=== PATIENT | male | born 1940 | race Caucasian/White ===

== ENCOUNTER 2017-05-20 06:45 | Day surgery (SDC) | payer OTHER ==
[~2017-05-20] VITALS: Ht 172.7 cm; Wt 74.7 kg
[2017-05-20] MEDS ORDERED: SODIUM CHLORIDE 0.9% 1000ML 1,000 ML IV ONE (06:51)
[2017-05-20 07:42] VITALS: BP 125/70
[2017-05-20] MEDS ORDERED: TAMS0.4C32 PO (07:57)
[2017-05-20] MEDS ORDERED: AEC81 PO (07:57)
[2017-05-20] MEDS ORDERED: SIMV10TA6 PO (07:57)
[2017-05-20] MEDS ORDERED: PROPOFOL 10 MG/ML 20ML VIAL IV ONE (09:01)
[2017-05-20 09:22] VITALS: BP 93/47
== END 2017-05-20 10:00 ==
LOC: ENDO 06:45 → DAH 06:45 → ENDO 10:00
PROVIDERS: ATTEND Internal Medicine Gastroenterology
DX: Z09 Encounter for follow-up examination after completed treatment for conditions other than malignant neoplasm (principal); Z86.010 Personal history of colon polyps; D12.1 Benign neoplasm of appendix; I10 Essential (primary) hypertension; N40.0 Benign prostatic hyperplasia without lower urinary tract symptoms; E78.5 Hyperlipidemia, unspecified; Z79.899 Other long term (current) drug therapy; Z98.890 Other specified postprocedural states
CPT/HCPCS: 45380; 88305; 93005; A4606; J2704; J7030

== ENCOUNTER → 2018-05-28 | Outpatient (CLI) | payer OTHER ==
[~2018-05-28] MED LIST: AEC81 PO; SIMV10TA6 PO; TAMS0.4C32 PO
== END | disposition home or self-care (01) ==
LOC: SHCH 07:54
PROVIDERS: ATTEND Internal Medicine Cardiovascular Disease
DX: I25.10 Atherosclerotic heart disease of native coronary artery without angina pectoris (principal)
CPT/HCPCS: 93978

== ENCOUNTER → 2019-09-08 | Outpatient (CLI) | payer OTHER ==
[~2019-09-08] MED LIST changes: -SIMV10TA6 PO; +SIMV10TA97 PO
== END | disposition home or self-care (01) ==
LOC: SHCH 11:59
PROVIDERS: ATTEND Internal Medicine Cardiovascular Disease
DX: R09.89 Other specified symptoms and signs involving the circulatory and respiratory systems (principal)
CPT/HCPCS: 93306; 93356; 93880

== ENCOUNTER 2021-09-12 05:43 | Observation (INO) | payer OTHER ==
[2021-09-06 11:08] LABS: BASOPHILS % (AUTO) 0.8 % (0.0-5.0); CREATININE 0.8 mg/dL (0.5-1.5); EOSINOPHILS % (AUTO) 1.4 % (0.0-8.0); HEMATOCRIT 41.6 % (42-54); LYMPHOCYTES % (AUTO) 25.4 % (21.0-51.0); MEAN CORPUSCULAR HEMOGLOBIN 31.4 pg (27.0-33.0); MEAN CORPUSCULAR HGB CONC 33.4 g/dL (32.0-36.0); MEAN CORPUSCULAR VOLUME 94.1 fL (79-99); MONOCYTES % (AUTO) 5.8 % (3.0-13.0); NEUTROPHILS % (AUTO) 66.3 % (40.0-77.0); PLATELET COUNT (AUTO) 226 K/uL (130-400); POTASSIUM 4.7 mmol/L (3.5-5.1); RED BLOOD CELL COUNT(AUTO) 4.42 MIL/uL (4.50-6.20); WHITE BLOOD COUNT (AUTO) 7.1 K/uL (4.8-10.8)
[2021-09-06 12:10] LABS: INR 0.98 (0.85-1.15); PROTHROMBIN TIME 10.7 SEC (9.6-11.6)
[2021-09-06 12:11] LABS: PARTIAL THROMBOPLASTIN TIME 26.6 SEC (26.3-35.5)
[2021-09-11 15:45] VITALS: BP 153/84
[2021-09-12] VITALS (25 sets, daily range): BP systolic 112–149; BP diastolic 49–79
[~2021-09-12] VITALS: Ht 172.7 cm; Wt 72.7 kg
[~2021-09-12 05:43] MED LIST changes: -AEC81 PO; +LOSA50TA64 PO
[2021-09-12] MEDS ORDERED: TRANEXAMIC ACID 1000MG/10ML ONE (06:50)
[2021-09-12] MEDS ORDERED: LACTATED RINGERS 1000ML 1,000 ML IV ONE (06:52)
[2021-09-12] MEDS ORDERED: CEFAZOLIN SODIUM 1 GM VIAL ONE (06:52)
[2021-09-12] MEDS ORDERED: PROPOFOL 1000 MG/100 ML 100 ML IV ONE (07:11)
[2021-09-12] MEDS ORDERED: FAMOTIDINE 20MG VIAL IV ONE (07:11)
[2021-09-12] MEDS ORDERED: PHENYLEPHRINE HCL 10 MG/ML 1ML VIAL IV ONE (07:13)
[2021-09-12] MEDS ORDERED: ROPIVACAINE 0.5% 5MG/ML 30ML IJ ONE (07:17)
[2021-09-12] MEDS ORDERED: LIDOCAINE PF 100MG/5ML (2%) SYRINGE 5ML ONE (07:20)
[2021-09-12] MEDS ORDERED: FENTANYL CITRATE PF 50 MCG/1 ML 2ML VIAL ONE (07:21)
[2021-09-12] MEDS ORDERED: ROCURONIUM 10MG/1ML SYR 10 MG/ML ML ONE (07:21)
[2021-09-12] MEDS ORDERED: PROPOFOL 10 MG/ML 20ML VIAL IV ONE ×2 (07:21→09:38)
[2021-09-12] MEDS ORDERED: GLYCOPYRROLATE 1 MG/5 ML SYRINGE ONE (07:21)
[2021-09-12] MEDS ORDERED: ONDANSETRON 4MG INJ ONE (08:13)
[2021-09-12] MEDS ORDERED: ROPIVICAINE 250MG+KETOROLAC 15MG+EPINEPHRINE 0.3+CLONIDINE 80 IV PRN ×5 (09:00)
[2021-09-12] MEDS ORDERED: NEOSTIGMINE 5MG/5ML SYR IV ONE (09:34)
[2021-09-12] MEDS ORDERED: MEPERIDINE-PF 25 MG/ML SYG ONE ×2 (09:37→10:45)
[2021-09-12] MEDS ORDERED: KCL 20 MEQ ERTAB PO PRN (10:30)
[2021-09-12] MEDS ORDERED: LIDOCAINE HCL-MPF 1% 2ML VIAL IV PRN (10:30)
[2021-09-12] MEDS: 0.9%NACL 1000ML 1,000 ML IV SCH ×2 (10:30→20:37)
[2021-09-12] MEDS ORDERED: ONDANSETRON 4MG INJ IVP PRN (10:30)
[2021-09-12] MEDS ORDERED: POTASSIUM CHLORIDE 10% ELIXIR 20 MEQ/15 ML UDCUP PO PRN (10:30)
[2021-09-12] MEDS ORDERED: HYDROCODONE/ACETAMINOPHEN 5/325 MG TAB PO PRN (10:30)
[2021-09-12] MEDS ORDERED: HYDROCODONE/ACETAMINOPHEN 10/325 MG TAB PO PRN (10:30)
[2021-09-12] MEDS ORDERED: POTASSIUM CHLORIDE 20MEQ/100ML 100 ML IV PRN (10:30)
[2021-09-12] MEDS ORDERED: MORPHINE 4 MG SYG IVP PRN (10:30)
[2021-09-12] MEDS: ACETAMINOPHEN 500 MG TABLET PO SCH ×2 (10:30→18:29)
[2021-09-12] MEDS ORDERED: KETOROLAC 15MG/ML VIAL (15MG/ML) IV PRN (10:30)
[2021-09-12] MEDS: TRAMADOL HCL 50 MG TABLET PO SCH ×2 (11:58→18:29)
[2021-09-12] MEDS: TAMSULOSIN HCL 0.4 MG CAP.ER.24H PO SCH (13:20)
[2021-09-12] MEDS: CEFAZOLIN SODIUM 1 GM VIAL IVP SCH (16:30)
[2021-09-12] MEDS: ENOXAPARIN SODIUM 30 MG/0.3 ML SQ SCH (16:33)
[2021-09-12] MEDS: FAMOTIDINE 20MG TAB PO SCH (20:37)
[2021-09-12] MEDS ORDERED: LOSARTAN 50 MG TABLET PO SCH (21:00)
[2021-09-13] VITALS: BP 147/71
[2021-09-13] MEDS: CEFAZOLIN SODIUM 1 GM VIAL IVP SCH (00:05)
[2021-09-13] MEDS: TRAMADOL HCL 50 MG TABLET PO SCH ×3 (00:05→13:21)
[2021-09-13] MEDS: ACETAMINOPHEN 500 MG TABLET PO SCH ×2 (02:05→09:48)
[2021-09-13 03:35] LABS: HEMATOCRIT 34.8 % (42-54); MEAN CORPUSCULAR HEMOGLOBIN 31.3 pg (27.0-33.0); MEAN CORPUSCULAR HGB CONC 34.2 g/dL (32.0-36.0); MEAN CORPUSCULAR VOLUME 91.6 fL (79-99); RED BLOOD CELL COUNT(AUTO) 3.8 MIL/uL (4.50-6.20); RED CELL DISTRIBUTION WIDTH 12.4 % (11.0-15.5); WHITE BLOOD COUNT (AUTO) 9.5 K/uL (4.8-10.8)
[2021-09-13 03:42] LABS: CREATININE 0.8 mg/dL (0.5-1.5); POTASSIUM 3.8 mmol/L (3.5-5.1)
[2021-09-13 04:00] VITALS: BP 148/70
[2021-09-13] MEDS: 0.9%NACL 1000ML 1,000 ML IV SCH ×2 (05:55→09:50)
[2021-09-13] MEDS ORDERED: LACTATED RINGERS 1000ML 1,000 ML IV SCH (06:00)
[2021-09-13] MEDS ORDERED: CEFAZOLIN SODIUM 1 GM VIAL IVP SCH (06:00)
[2021-09-13] MEDS ORDERED: TRANEXAMIC ACID 1000MG/10ML IV SCH (06:00)
[2021-09-13 08:00] VITALS: BP 160/80
[2021-09-13] MEDS ORDERED: POLYETHYLENE GLYCOL 3350 17 GM POWD.PACK PO SCH (09:00)
[2021-09-13] MEDS: FAMOTIDINE 20MG TAB PO SCH (09:47)
[2021-09-13] MEDS: ENOXAPARIN SODIUM 30 MG/0.3 ML SQ SCH (09:50)
[2021-09-13 12:00] VITALS: BP 152/74
[2021-09-13] MEDS: TAMSULOSIN HCL 0.4 MG CAP.ER.24H PO SCH (13:21)
[2021-09-15] MEDS ORDERED: BISACODYL 10 MG SUPP.RECT RC PRN (10:30)
== END 2021-09-13 15:46 | disposition home or self-care (01) ==
LOC: DAH 05:43 → DAHIP 05:44 → 4BH 11:34
PROVIDERS: ADMIT Orthopaedic Surgery; ATTEND Orthopaedic Surgery
DX: M17.12 Unilateral primary osteoarthritis, left knee (principal); Z20.822 Contact with and (suspected) exposure to COVID-19; Z79.899 Other long term (current) drug therapy
CPT/HCPCS: 0055T; 27446; 36415; 64447; 76942; 80048; 85025; 85027; 85610; 85730; 87635; 87641; 96372; 96374; 96375; 96376; 97039; C9803; G0378; J0171; J0690; J0735; J1650; J1885; J2001; J2175; J2270; J2370; J2405; J2704; J2710; J2795; J3010; J3490; J7120

== ENCOUNTER → 2022-11-20 | Outpatient (CLI) | payer OTHER | END | disposition home or self-care (01) | LOC: SHCH 10:20 | PROVIDERS: ATTEND Internal Medicine Cardiovascular Disease | DX: I65.23 Occlusion and stenosis of bilateral carotid arteries (principal) | CPT/HCPCS: 93880 ==

== ENCOUNTER → 2022-11-27 | Outpatient (CLI) | payer OTHER ==
[2022-11-27 16:24] LABS: POTASSIUM 3.8 mmol/L (3.5-5.1)
== END | disposition home or self-care (01) ==
LOC: LAB 11:53
PROVIDERS: ATTEND Internal Medicine Cardiovascular Disease
DX: I10 Essential (primary) hypertension (principal)
CPT/HCPCS: 36415; 80048

== ENCOUNTER → 2023-07-31 | Outpatient (CLI) | payer OTHER | END | disposition home or self-care (01) | LOC: SHCH 13:41 | PROVIDERS: ATTEND Internal Medicine Cardiovascular Disease | DX: I08.3 Combined rheumatic disorders of mitral, aortic and tricuspid valves (principal); I11.9 Hypertensive heart disease without heart failure; E78.5 Hyperlipidemia, unspecified; I31.39 Other pericardial effusion (noninflammatory) | CPT/HCPCS: 93306 ==

== ENCOUNTER → 2024-01-17 | Outpatient (CLI) | payer OTHER | END | disposition home or self-care (01) | LOC: SHCH 08:14 | PROVIDERS: ATTEND Internal Medicine Cardiovascular Disease | DX: I25.10 Atherosclerotic heart disease of native coronary artery without angina pectoris (principal) | CPT/HCPCS: 93306 ==